=== PATIENT | male | born 1995 | race Caucasian/White ===

== ENCOUNTER 2020-01-21 05:15 | Emergency (ER) | payer BC, MEDICAID, SELFPAY ==
[2020-01-21 05:22] VITALS: BP 125/69; PULSE 99; RESP 18; TEMP 36.5; O2SAT 98
--- NOTE | 2020-01-21 05:26 | ED.LOWEXIN ---
HPI - Extremity Injury (Lower) General Chief Complaint: Extremity Injury, Lower Stated Complaint: Right hip pain Time Seen by Provider: 01/21/20 05:26 History of Present Illness HPI Narrative: Pain in the right buttock radiating down the lateral right leg for the past week. Mild at rest. Worse with standing and walking. No weakness, numbness. He has not tried anything for his symptoms. Related Data Allergies Allergy/AdvReac Type Severity Reaction Status Date / Time No Known Allergies Allergy Verified 01/24/20 07:59 Review of Systems Review of Systems: All systems reviewed & are unremarkable except as noted in HPI and below Constitutional: Constitutional: Denies fever(s) and Denies weakness Musculoskeletal: Musculoskeletal: Reports back pain Neurologic: Denies dizziness, Denies numbness and Denies weakness PMFSH Past Medical History Medical History Healthy adult male Surgical History Surgical History No history of previous surgery Social History Social History Second hand tobacco smoke exposure: No Additional smoking assessment comments: Patient denies smoking Exam Const: General: healthy appearing, no acute distress and alert Nutritional Appearance: well nourished Orientation/consciousness: patient oriented x3 HENMT: Head: normal to inspection Resp: Effort & Inspection: normal respiratory effort Auscultation: clear to auscultation bilaterally Cardio: Rate: regular rate Rhythm: regular rhythm Back/Spine/Pelvis: Other: Tender in right buttock. Pain reproduced with right hip flexion. Skin: General skin exam: normal color Neuro: General: patient oriented x3, moves all extremities, no focal motor deficits and CN's II-XI intact bilaterally Speech: normal speech Gait exam (Neuro): Normal gait present Course Vital Signs Vital signs: Vital Signs Temperature 36.5 C 01/21/20 05:22 Pulse Rate 99 01/21/20 05:22 Respiratory Rate 18 01/21/20 05:22 Blood Pressure 125/69 01/21/20 05:22 Pulse Oximetry 98 01/21/20 05:22 Temperature 36.5 C 01/21/20 05:22 Pulse Rate 72 01/21/20 06:46 Respiratory Rate 16 01/21/20 06:46 Blood Pressure 128/72 01/21/20 06:46 Pulse Oximetry 99 01/21/20 06:46 MDM - Extremity Injury (Lower) MDM Narrative Medical decision making narrative: History and exam clearly suggest sciatica. Discharge Plan Discharge Clinical Impression: Sciatica of right side Patient Disposition: Home, Self-Care Condition: Stable Instructions: Sciatica (ED) Prescriptions: New diazepam [Valium] 2 mg tablet 2 mg PO TID PRN (Reason: muscle spasm) Qty: 10 RF: 0 cyclobenzaprine 10 mg tablet 10 mg PO TID PRN (Reason: muscle spasm) Qty: 20 RF: 0 No Action cyclobenzaprine 10 mg tablet 10 mg PO TID PRN (Reason: muscle spasm) Qty: 20 RF: 0 naproxen 500 mg tablet 500 mg PO BID Qty: 20 RF: 0 methylprednisolone [Medrol (Nithin)] 4 mg tablets,dose pack See Rx Instructions .ROUTE .COMPLEX Qty: 21 RF: 0 Follow-up/Referrals: PHYSICIAN,[employer]TERN [employer] SUPERVISOR [Primary Care Provider] - Discharge Date/Time: 01/21/20 06:47
[2020-01-21] MEDS: KETOROLAC (*BKC) 60 MG/2 ML VIAL IM (05:53)
[2020-01-21] MEDS: CYCLOBENZAPRINE HCL 10 MG TABLET PO (06:11)
[2020-01-21 06:46] VITALS: BP 128/72; PULSE 72; RESP 16; O2SAT 99
== END 2020-01-21 06:47 | disposition home or self-care (01) ==
PROVIDERS: Emergency Provider Emergency Medicine
DX: M54.31 Sciatica, right side (principal)
CPT/HCPCS: 96372; 99283; A9270; J1885

== ENCOUNTER 2020-01-22 22:06 | Emergency (ER) | payer BC, MEDICAID, SELFPAY ==
--- NOTE | ~2020-01-22 | XR_ITS ---
EXAMINATION: XR lumbar spine 2-3V EXAM DATE: 01/22/2020 22:45 INDICATION: Right lower back pain, occasional numbness and right thigh. TECHNIQUE: Lumber spine frontal, lateral, lateral L5-S1 projections for interpretation. There is no prior study for comparison. FINDINGS: Mild lumbar dextrocurvature, could be mild scoliosis or could be positional. The vertebral bodies are aligned in the AP dimension. Vertebral body and disc heights are well-maintained. No spond ylolysis. Facet joints are unremarkable. Sacrum, sacroiliac joints, sacral arcuate lines are intact. IMPRESSION: Mild lumbar levocurvature. Reviewed, dictated and finalized at location G. IMPRESSION: Mild lumbar levocurvature.
[2020-01-22 22:11] VITALS: BP 108/68; PULSE 73; RESP 16; TEMP 37.2; O2SAT 100
--- NOTE | 2020-01-22 22:33 | ED.GENADULT ---
HPI - General Adult General Chief complaint: Extremity Problem,Nontraumatic Stated complaint: rt sciatica pain Time Seen by Provider: 01/22/20 22:16 Source: patient Mode of arrival: ambulatory Limitations: no limitations History of Present Illness HPI narrative: 24 years old white male complaining of right buttock pain radiating to the back of the right thigh started on that week ago. Patient denies any trauma. 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 Patient denies any fever, chills, nausea, vomiting, urinary symptoms or abdominal pain. Patient started on ibuprofen and muscle relaxant 2 days ago without improvement. Patient denies focal neuro deficits. Patient reported that the pain at the back of his right thigh is like numbness. And the pain on the right buttock like dull aching. Related Data Allergies Allergy/AdvReac Type Severity Reaction Status Date / Time No Known Allergies Allergy Verified 01/21/20 05:29 Review of Systems Review of Systems: Narrative: CONSTITUTIONAL: Denies fever, chills, or sweats. EYES: Denies visual changes, redness, or discharge. ENT: Denies rhinorrhea, congestion, sore throat, or otalgia. CARDIOVASCULAR: Denies chest pain, palpitations, or edema. RESPIRATORY: Denies cough or dyspnea. GASTROINTESTINAL: Denies abdominal pain, nausea, vomiting, or diarrhea. GENITOURINARY: Denies dysuria or hematuria. SKIN: Denies rash or itching. MUSCULOSKELETAL: Denies back pain, joint pain, or myalgia. NEUROLOGIC: Denies headache, numbness, or weakness. PSYCHIATRIC: Denies anxiety or depression. PMF Social History Social History (Updated 01/22/20 @ 22:37 by Jj Valentin MD) Second hand tobacco smoke exposure: No Additional smoking assessment comments: Patient denies smoking Alcohol use details: Patient drinks alcohol occasionally Exam Narrative: Exam Narrative: General appearance: Well-developed, well-nourished Skin: Normal color Head: Normocephalic, nontraumatic Eyes: Clear conjunctiva ENT: Oropharynx normal, ears normal, nose normal Neck: Supple, nontender Chest and respiratory: Airway patent, no respiratory distress, no accessory muscle use Heart: Regular rate/rhythm Abdomen: Soft, nontender, no organomegaly, quiet bowel sounds Vascular: Normal peripheral pulses, normal capillary refill. Musculoskeletal: Mild tenderness right buttock, negative right straight leg raising test, intact reflexes of the right knee and right ankle. Neurologic: Alert and oriented ?3, [employer]GEMENT is normal as tested, no gross motor deficit Course Course Emergency Course: Stable Vital Signs Vital signs: Vital Signs Temperature 37.2 C 01/22/20 22:11 Pulse Rate 73 01/22/20 22:11 Respiratory Rate 16 01/22/20 22:11 Blood Pressure 108/68 01/22/20 22:11 Pulse Oximetry 100 01/22/20 22:11 Temperature 37.2 C 01/22/20 22:11 Pulse Rate 73 01/22/20 22:11 Respiratory Rate 16 01/22/20 22:11 Blood Pressure 108/68 01/22/20 22:11 Pulse Oximetry 100 01/22/20 22:11 Medical Decision Making MDM Narrative Medical decision making narrative: Right lumbar radiculopathy is my concern. Decadron 10 mg IM ordered. Because patient denied any trauma or new physical activity lately. X-ray of the lumbar spine ordered to make sure that there is no tumor at that area according patient symptoms. Vital Signs Vital Signs: Vital Signs Temperature 37.2 C 01/22/20 22:11 Pulse Rate 73 01/22/20 22:11 Respiratory Rate 16 01/22/20 22:11 Blood Pressure 108/68 01/22/20 22:11 Pulse Oximetry 100 01/22/20 22:11 Temperature 37.2 C 01/22/20 22:11 Pulse Rate 73 01/22/20 22:1
[2020-01-23 00:46] VITALS: BP 112/64; PULSE 72; RESP 16; TEMP 36.7; O2SAT 99
== END 2020-01-23 00:46 | disposition home or self-care (01) ==
PROVIDERS: Emergency Provider Emergency Medicine
DX: M54.16 Radiculopathy, lumbar region (principal)
CPT/HCPCS: 72100; 96372; 99283; J1100

== ENCOUNTER 2020-01-24 06:46 | Emergency (ER) | payer BC, MEDICAID, SELFPAY ==
[2020-01-24 06:47] VITALS: BP 111/66; PULSE 88; RESP 20; TEMP 36.8; O2SAT 100
--- NOTE | 2020-01-24 07:09 | PC.NURSE ---
Pt's mother standing in hallway, given water as requested. States why can't someone come see him right now? He's in a lot of pain . Explained that the physician's are switching shifts, and that Dr. Brewer will be down as soon as possible to see her son. Pt's mother not happy with this. Pt is moaning on bed, KIMEW x4.
--- NOTE | 2020-01-24 07:32 | PC.NURSE ---
Dr. Brewer at bedside for exam.
[2020-01-24] MEDS: KETOROLAC (*BKC) 60 MG/2 ML VIAL IM (08:11)
--- NOTE | 2020-01-24 08:26 | ED.GENADULT ---
HPI - General Adult General Chief complaint: Extremity Injury, Lower Stated complaint: R LEG PAIN Time Seen by Provider: 01/24/20 07:01 History of Present Illness HPI narrative: Patient is a 24-year-old male who presents the ER with sciatica. This is his third visit in 3 days. Originally received a Toradol injection and discharged with muscle relaxers and ibuprofen. He reports he was taking those medications. He returned the next day and received a steroid injection and was discharged with prednisone, unfortunately the pharmacy did not have it in stock so he has not taken it. Pain continues today so he returned to the ER. He also had an x-ray yesterday that showed no acute process. Patient reports significant pain with forward flexion at the hip and with any palpation over the posterior aspect of his buttock. Patient is throbbing at rest and then sharp with active movement. Reports sensation of numbness that moves into his anterior thigh at times but is not constant. No urinary retention or saddle anesthesia. No lower extremity weakness. No known trauma. No fevers or chills or sweats. Related Data Allergies Allergy/AdvReac Type Severity Reaction Status Date / Time No Known Allergies Allergy Verified 01/24/20 07:59 Review of Systems Constitutional: Constitutional: Denies chills and Denies fever(s) Musculoskeletal: Musculoskeletal: Reports back pain, Denies arthralgias and Denies muscle cramps Neurologic: Denies focal weakness, Reports numbness and Denies weakness PMFSH Past Medical History Medical History (Updated 01/24/20 @ 08:33 by Danilo Brewer MD) Healthy adult male Surgical History Surgical History (Updated 01/24/20 @ 08:29 by Danilo Brewer MD) No history of previous surgery Social History Social History (Updated 01/22/20 @ 22:37 by Jj Valentin MD) Second hand tobacco smoke exposure: No Additional smoking assessment comments: Patient denies smoking Exam Narrative: Exam Narrative: GENERAL: Well-appearing, well-nourished, and in no acute distress. HEAD: Normocephalic, atraumatic. EXTREMITIES: Focused exam of bilateral lower extremities reveals normal strength at the ankle/knee/hip bilaterally. There is significant tenderness over the posterior aspect of the right hip that is pinpoint and consistent with the location of the sciatic nerve no piriformis and gluteus dena musculature. No redness or swelling. Back: No midline tenderness of the thoracic or lumbar spine. No paraspinal muscular tenderness or spasm. SKIN: Warm, dry, no rash. NEURO: No focal deficits. Alert and oriented x3. PSYCH: Normal mood and affect. Course Course Emergency Course: No repeat imaging. Toradol injection here as well as Lavalette for pain. Ice has been applied. Educated patient and mother on the fact that this type of pain does not go away immediately and takes a prolonged treatment of anti-inflammatories. Will start on Medrol Dosepak and he should not fill his prednisolone. We will also give on-call PCP phone number as [place] is from out of town does not have a doctor down here. Vital Signs Vital signs: Vital Signs Temperature 98.2 F 01/24/20 06:47 Pulse Rate 01/24/20 06:47 Respiratory Rate 01/24/20 06:47 Blood Pressure 111/66 01/24/20 06:47 Pulse Oximetry 100 01/24/20 06:47 Temperature 98.2 F 01/24/20 06:47 Pulse Rate 01/24/20 06:47 Respiratory Rate 01/24/20 06:47 Blood Pressure 111/66 01/24/20 06:47 Pulse Oximetry 100 01/24/20 06:47 Medical Decision Making Vital Signs Vital Signs: Vital Signs Temperature 98.2 F 01/24/20 06:47 Pulse Rate 88 01/24/20 06:47 Respiratory Rate 01/24/20 06:47 Blood Pressure 111/66 01/24/20 06:47 Pulse Oximetry 100 01/24/20 06:47 Temperature 98.2 F 01/24/20 06:47 Pulse Rate 01/24/20 06:47 Respiratory Rate 01/24/20 06:47 Blood Pressure 111/66 01/24/20 06:47 Pulse Oximetry 100 0
[2020-01-24 08:59] VITALS: BP 106/59; PULSE 95; RESP 18; O2SAT 98
== END 2020-01-24 09:01 | disposition home or self-care (01) ==
PROVIDERS: Emergency Provider Emergency Medicine
DX: M54.31 Sciatica, right side (principal)
CPT/HCPCS: 96372; 99283; A9270; J1885